=== PATIENT | male | born 1985 | race Caucasian/White ===

== ENCOUNTER → 2016-09-21 | Outpatient (CLI) | payer OTHER ==
[~2016-09-21] MED LIST: CEPH500C2 PO; DOCU-94 PO; OXYC7.5T65 PO
[2016-09-21 11:51] LABS: SEMEN TIME OF COLLECTION 915
[2016-09-21 11:52] LABS: DAYS OF ABSTINENCE 4; METHOD OF COLLECTION MASTURBATION; SEMEN COLOR YELLOW-GRAY (GRY/GRYWHTE); SEMEN VOLUME 4.5 ML (>1.5); TYPE OF SPECIMEN CONTAINER STERILE CUP
[2016-09-21 12:24] LABS: SPERM VIABILITY STAIN NOT PERFORMED % (>58%)
== END | disposition home or self-care (01) ==
LOC: C.LAB 09:59
PROVIDERS: ATTEND Urology
DX: N46.9 Male infertility, unspecified (principal)

== ENCOUNTER → 2016-10-22 | Outpatient (CLI) | payer OTHER ==
[2016-10-22 13:22] LABS: DAYS OF ABSTINENCE 2; METHOD OF COLLECTION MASTURBATION; SEMEN COLOR YELLOW-GRAY (GRY/GRYWHTE); SEMEN TIME OF COLLECTION 715; TYPE OF SPECIMEN CONTAINER STERILE CUP
[2016-10-22 13:24] LABS: SPERM VIABILITY STAIN NOT PERFORMED % (>58%)
== END | disposition home or self-care (01) ==
LOC: C.LAB 07:48
PROVIDERS: ATTEND Urology
DX: N46.9 Male infertility, unspecified (principal)

== ENCOUNTER → 2016-11-29 | Day surgery (SDC) | payer OTHER ==
[2016-11-15 10:31] VITALS: BMI 28.0
[2016-11-15 11:32] LABS: BASO % 0.3 %; BASO ABS # 0.02 K/uL (0-0.2); COMPLETE YES; EOS % 2.2 %; HEMATOCRIT 46.1 % (42-52); IG% 0.2 %; LYMPH % 27.7 %; LYMPH ABS # 1.61 K/uL (1.2-3.4); MEAN CELL VOLUME 89.7 fL (80-100); MEAN CORPUSCULAR HEMOGLOBIN 33.5 pg (25-34); MEAN CORPUSCULAR HGB CONC 37.3 g/dl (32-36); MEAN PLATELET VOLUME 9.5 fL (7.4-10.4); NEUT % 58.6 %; PLATELET COUNT 238 K/uL (130-400); RED BLOOD COUNT 5.14 M/uL (4.7-6.1); WHITE BLOOD COUNT 5.82 K/uL (4.8-10.8)
[2016-11-15 11:36] LABS: URINE APPEARANCE CLEAR (CLEAR); URINE BILIRUBIN NEG (NEG); URINE COLOR YELLOW; URINE NITRITE NEG (NEG); URINE SPECIFIC GRAVITY 1.021 (1.000-1.030); UROBILINOGEN NEG (NEG)
[2016-11-15 11:42] LABS: MANUAL MICROSCOPIC REQUIRED? NO; REVIEW REQ? NO
--- NOTE | 2016-11-15 11:42 | DIAGNOSTIC IMAGING REPORT ---
CHEST PREADMISSION(PA/LAT) CLINICAL HISTORY: PAT preoperative evaluation COMPARISON STUDY: No previous studies for comparison. FINDINGS: The bones soft tissues and hemidiaphragms are normal. The cardiomediastinal silhouette is normal. The lungs are clear. The pulmonary vasculature is normal. IMPRESSION: Negative chest. Electronically signed by: Adalid Yu M.D. 11/15/2016 11:40 AM Dictated Date/Time: 11/15/2016 11:40 AM
[2016-11-15 11:54] LABS: BUN/CREATININE RATIO 15.7 (10-20); CALCIUM 9.4 mg/dl (8.5-10.1); CREATININE 0.89 mg/dl (0.60-1.40)
[~2016-11-29] VITALS: Ht 182.9 cm; Wt 95.3 kg
[~2016-11-29] MED LIST changes: +ATROPINE SULFATE 0.1 MG/ML 5ML SYR IV PRN; +BUPIVACAINE 0.5 % 5 MG/1 ML MPF 30ML VIAL ONE; +CEFAZOLIN 2000 MG/60 ML D5W IV SCH; +DEXAMETHASONE SOD INJ 4 MG/ML VIAL ONE; +EpHEDrine SULFATE INJ 50 MG/ML AMP IV PRN; +FENTANYL CITRATE INJ 50 MCG/1 ML 2 ML VIAL IV PRN; +FENTANYL CITRATE INJ 50 MCG/1 ML 2 ML VIAL ONE; +GLYCOPYRROLATE INJ 0.2 MG/ML VIAL ONE; +HYDROmorphone INJ 2 MG/ML SYR/VIAL ONE; +KETOROLAC TROMETHAMINE 30 MG/ML VIAL ONE; +LACTATED RINGER'S 1000ML 1,000 ML IV SCH; +LACTATED RINGER'S 1000ML 500 ML IV ONE; +LIDOCAINE HCL 2% 2 ML VIAL (20MG/ML) ONE; +METOCLOPRAMIDE HCL INJ 5 MG/ML 2 ML VIAL ONE; +MIDAZOLAM HCL 1 MG/ML 2ML VIAL ONE; +NEOSTIGMINE METHYLSULFATE 5 MG/5 ML SYR ONE; +ONDANSETRON INJ 2 MG/ML 2 ML VIAL IV PRN; +ONDANSETRON INJ 2 MG/ML 2 ML VIAL ONE; +OXYCODONE/ACETAMINOPHEN 5-325 TAB PO PRN; +PROPOFOL IV EMULSION 10 MG/ML 20 ML VIAL IV ONE; +RANITIDINE HCL 25 MG/ML INJ ONE; +ROCURONIUM BROMIDE 10 MG/ML 5 ML VIAL ONE
[2016-11-29 10:57] VITALS: BP 136/61; PULSE 76; TEMP 36.3; O2SAT 99; Ht 182.9 cm; Wt 95.3 kg
--- NOTE | 2016-11-29 12:41 | History & Physical Bridge Note ---
H&P Re-Evaluation Bridge Note: I have examined the patient, reviewed the History & Physical and in the interval since the performance of the History & Physical I have noted the following changes of clinical significance: No changes noted
--- NOTE | 2016-11-29 16:02 | [facility] Post Operative Brief Note ---
Immediate Operative Summary Operative Date Nov 29, 2016. Pre-Operative Diagnosis Left varicocele Post-Operative Diagnosis Left varicocele and Left internal direct inguinal hernia Procedure(s) Performed Left inguinal varicocelectomy, left inguinal hernia repair Surgeon Dr. Jet Wright Miniature Set Designer Surgeon(s) none Estimated Blood Loss 15 cc Findings Direct inguinal hernia on left in floor of canal closed, 2 small testicular arteries discovered and preserved. Specimens none per surgeon Drains NA Anesthesia GALMA + local Complication(s) None Disposition Recovery Room / PACU
--- NOTE | 2016-11-29 16:02 | Discharge Instructions ---
Discharge Instructions Date of Service Nov 29, 2016. Admission Reason for Admission: Left Varicocele Discharge Discharge Diagnosis / Problem: L varicocoele s/p varicocoelectomy Discharge Goals Goal(s): Improve function, Therapeutic intervention Activity Recommendations Activity Limitations: as noted below Lifting Limitations: no more than 25 pounds (x 1-2 weeks) Exercise/Sports Limitations: rest today (light activity x 1-2 weeks) May Resume Sexual Activity: when tolerated Shower/Bathe: tomorrow Driving or Machine Use: resume 1 day after discharge (if not using pain medication) . Instructions / Follow-Up Instructions / Follow-Up Ice and scrotal support as needed Discharge Diet Recommended Diet: Regular Diet (good fluid intake) Procedures Procedures Performed: Left varicocoelectomy and hernia repair Pending Studies Studies pending at discharge: no Medical Emergencies . Who to Call and When: Medical Emergencies: If at any time you feel your situation is an emergency, please call 911 immediately. . Non-Emergent Contact Non-Emergency issues call your: Urologist Call Non-Emergent contact if: you have a fever, temperature is above 101, your pain is not controlled, your pain is worsening, your pain is concerning you, wound has increased drainage, wound has increased redness, wound has increased pain, you have any medication questions . . "Provider Documentation" section prepared by Jet Wright. VTE Core Measure Inpt VTE Proph given/why not?: SCD's [place] Drug Monitoring Program Search Results: patient reviewed within database, no issues identified
--- NOTE | 2016-11-29 16:18 | Anesthesiology Progress Note ---
Anesthesia Post Op Note Date & Time Nov 29, 2016 at 16:18 Vital Signs Pain Intensity: 0 Vital Signs Past 12 Hours Date Time Temp Pulse Resp B/P Pulse Ox O2 Delivery O2 Flow Rate FiO2 11/29/16 16:10 36.8 62 20 117/68 96 Room Air 11/29/16 16:00 56 14 107/58 97 Room Air 11/29/16 15:50 69 14 131/64 94 Room Air 11/29/16 15:40 72 19 102/73 96 Mask 10 11/29/16 15:33 37.8 61 14 117/67 97 Mask 10 11/29/16 10:57 36.3 76 18 136/61 99 Room Air Notes Mental Status: alert / awake / arousable, participated in evaluation Pt Amnestic to Procedure: Yes Nausea / Vomiting: adequately controlled Pain: adequately controlled Airway Patency, RR, SpO2: stable & adequate BP & HR: stable & adequate Hydration State: stable & adequate Anesthetic Complications: no major complications apparent
[2016-11-29 16:20] VITALS: BP 118/60; PULSE 58; TEMP 36.7; O2SAT 97
[2016-11-29 16:50] VITALS: BP 122/59; PULSE 60; O2SAT 96
[2016-11-29 17:20] VITALS: BP 119/56; PULSE 66; TEMP 36.8; O2SAT 96
--- NOTE | 2016-11-29 23:53 | OPERATIVE REPORT ---
DATE OF OPERATION: 11/29/2016 PREOPERATIVE DIAGNOSES: Left-sided varicocele and infertility. POSTOPERATIVE DIAGNOSES: Same, left internal direct inguinal hernia. PROCEDURE: Left-sided inguinal varicocelectomy and left-sided inguinal hernia repair. SURGEON: Dr. Jet Wright. OIL EXPERT: None. ANESTHESIA: General anesthesia with laryngeal mask plus local. COMPLICATIONS: None. ESTIMATED BLOOD LOSS: 15 mL IV FLUIDS: 1500 mL of crystalloid. SPECIMENS SENT TO PATHOLOGY: None. DRAINS LEFT IN PLACE: None. FINDINGS: Two small testicular arteries discovered and preserved, direct inguinal hernia in the floor of the left inguinal canal, closed with interrupted sutures. COMPLICATIONS: None. BRIEF HISTORY: Mr. Palacios is a pleasant 31-year-old male who I have seen as an outpatient for a history of left-sided varicocele on physical exam and infertility. Semen analysis demonstrated changes consistent with varicocele effect. He is being brought in today for surgical management of his condition. Please see H\T\P for further details. Informed consent reviewed in the preoperative area prior to intervention. Intravenous Ancef provided for antibiotic coverage. PROCEDURE IN DETAIL: The patient was properly identified and brought to the operative suite. After identification of appropriate consent on the chart, general anesthesia with laryngeal mask was initiated. The patient was prepped and draped in a standard fashion for this procedure. Full timeout procedure was followed. Skin was anesthetized with local prior to incision. A small incision over the inguinal canal was made and brought down through the subcutaneous tissues to the fascia of the external abdominal musculature. Fascia of the external oblique was incised following fascial lines and cord was identified. Ilioinguinal nerve was visualized and preserved from the surgical field by bringing it out of the surgical field over the course of the case. Cord was circumscribed and a 1-inch Jeanette drain was used to raise it above the floor of the inguinal canal. No additional venous structures or other abnormalities in the inguinal canal were appreciated. Cremasteric fibers were taken using pinpoint Bovie cautery as necessary. Frequent use of the Doppler assisted in ensuring that the testicular artery would be preserved. Vas was isolated from the cord when it was identified and brought under the Jeanette drain. Large veins were isolated using Peanuts and blunt dissection and then controlled with right-angle clamps and divided. These were tied with 2-0 Vicryl. Dissection deep into the cord revealed 2 areas of clear pulsatile Doppler signal, felt to be consistent with 2 delicate small testicular arteries. These were carefully skeletonized and no other veins of the pampiniform plexus were appreciated within the canal. The Agness was removed and the contents of canal were noted to be limited to the vas and the 2 testicular arteries as noted. Generous irrigation to ensure lack of infection was carried out. Over the course of the case, the patient was noted to have a reasonably significant amount of fatty tissue associated with the cord. At first, a lipoma of the cord was suspected, but this was noted to be reducible into the intraabdominal cavity, consistent with a fascial defect to the deep aspect of the canal. This originated alongside the cord consistent with a direct hernia. No defect in the external fascia was appreciated. The peritoneal fat was returned to its intraperitoneal location. Using 0 Vicryl suture on a UR-5 needle, the internal ring was reconstructed in an interrupted fashion correcting the defect. Extreme care was taken to avoid any entrapment of the cord and the cord was reexamined using a Doppler signal after completion of case and both testicular artery signals were noted to be intact. After this was complete, the fascia to the external oblique was closed using a running 0 Vicryl suture. Subcutaneous tissues were closed using 3-0 Vicryl and skin was closed using 4-0 Monocryl and Dermabond. Anesthesia was reversed. The patient was transferred to the recovery room in stable condition. FOLLOWUP CARE: The patient will be discharged home after recovery. Prescription for Keflex, Colace and Percocet is provided. Postoperative instructions reviewed with the patient. The patient is instructed to contact us should he note any fevers, chills, nausea, vomiting or other significant difficulties in the postoperative period. Postoperative appointment is confirmed. I attest to the content of the Intraoperative Record and any orders documented therein. Any exceptio ns are noted below.
== END | disposition home or self-care (01) ==
LOC: C.ACU 10:46
PROVIDERS: ATTEND Urology
DX: I86.1 Scrotal varices (principal); N46.9 Male infertility, unspecified; Z80.8 Family history of malignant neoplasm of other organs or systems